=== PATIENT | female | born 2000 | race Caucasian/White ===

== ENCOUNTER → 2021-08-03 | Outpatient (CLI) | payer MEDICAID ==
--- NOTE | 2021-08-03 09:47 | US ---
EXAMINATION TYPE: US thyroid st tissue head/neck DATE OF EXAM: 08/03/2021 COMPARISON: NONE CLINICAL HISTORY: R79.89 ABN THYROID BLOOD TESTS. Pt states abnormal labs GLAND SIZE: Right Lobe: 4.9 x 1.4 x 1.5 cm Overall Parenchyma: Slightly heterogeneous Left Lobe: 5.0 x 1.1 x 1.4 cm Overall Parenchyma: Slightly heterogeneous Isthmus Thickness: 0.3 cm NODULES RIGHT: # of nodules measured on right: 0 LEFT: # of nodules measured on left: 0 ISTHMUS: # of nodules measured in the isthmus: 0 Bilateral neck scanned, no evidence of lymphadenopathy. Slightly heterogeneous thyroid without nodule s visualized. IMPRESSION: Glandular heterogeneity without evidence for nodularity.
== END | disposition home or self-care (01) ==
LOC: RADUSWWP 08:43
PROVIDERS: ATTEND Family Medicine
DX: R79.89 Other specified abnormal findings of blood chemistry (principal)
CPT/HCPCS: 76536

== ENCOUNTER → 2022-01-11 | Outpatient (CLI) | payer MEDICAID ==
--- NOTE | 2022-01-11 13:17 | MR ---
EXAMINATION TYPE: MR sacroiliac joints wo con DATE OF EXAM: 01/11/2022 COMPARISON: None HISTORY: SACROCOCCYGEAL DISORDERS Standard multiplanar, multisequence MRI departmental protocol Multiplanar, multisequence images of the sacroiliac joints were acquired without contrast. Diffusion weighted imaging was performed. FINDINGS: The sacroiliac joints appear symmetric. There is no evidence for abnormal widening or scler osis. No evidence for erosive change. No evidence for fracture or osseous lesion. Normal bone marrow signal identified. Small ovarian follicles noted. Trace free fluid within the cul-de-sac. Uterus is u nremarkable. Lower lumbar spine is within normal limits. IMPRESSION: Unremarkable MR evaluation of the sacroiliac joints.
== END | disposition home or self-care (01) ==
LOC: RADMRIMAIN 11:54
PROVIDERS: ATTEND Internal Medicine Rheumatology
DX: M53.3 Sacrococcygeal disorders, not elsewhere classified (principal)
CPT/HCPCS: 72195

== ENCOUNTER → 2022-02-22 | Outpatient (CLI) | payer MEDICAID ==
--- NOTE | 2022-02-23 08:09 | MR ---
EXAMINATION TYPE: MR tmj wo con DATE OF EXAM: 02/22/2022 COMPARISON: None HISTORY: Jaw pain, TMJ disorder Standard multiplanar, multisequence MRI departmental protocol Multiplanar, multisequence images of the bilateral TMJ were acquired without contrast. Stepwise openi ng was performed. FINDINGS: Left TMJ: There is normal anterior subluxation of the condyle in relation to the temporal bone during opening. The condyle appears small. There appears to be normal capture of the meniscus. Right TMJ: There is normal subluxation of the condyle in relation to the temporal bone. There is norm al capture of the meniscus. Right Temporomandibular junction appears normal. IMPRESSION: There is normal motion and capture of the menisci of the bilateral temporomandibular joints. The righ t condyle however appear small which could be related to degenerative changes. Consider plain film co rrelation.
== END | disposition home or self-care (01) ==
LOC: RADMRIMAIN 11:26
PROVIDERS: ATTEND Dentist
DX: M26.609 Unspecified temporomandibular joint disorder, unspecified side (principal)
CPT/HCPCS: 70336